=== PATIENT | male | born 1985 | race American Indian/Alaskan Native ===

== ENCOUNTER 2020-12-20 12:34 | Emergency (ER) | payer OTHER ==
--- NOTE | 2020-12-20 14:01 | XRay Report ---
CHEST 1 VIEW INDICATION / CLINICAL INFORMATION: CP. COMPARISON: None available. FINDINGS: SUPPORT DEVICES: None. HEART / MEDIASTINUM: No significant abnormality. LUNGS / PLEURA: No significant pulmonary or pleural abnormality. No pneumothorax. ADDITIONAL FINDINGS: No significant additional findings. IMPRESSION: 1. No acute findings. Signer Name: Angelika Alvarado MD Signed: 12/20/2020 1:57 PM Workstation Name: [id number]
[2020-12-20 14:03] LABS: Basophils % (Auto) 0.3 % (0.0-1.8); Eosinophils % (Auto) 0.1 % (0.0-4.3); Hematocrit 39.3 % (35.5-45.6); Hemoglobin 13.2 gm/dl (11.8-15.2); Lymphocytes % (Auto) 8.2 % (13.4-35.0); Mean Corpuscular HGB Conc 34 % (32-34); Mean Corpuscular Volume 91 fl (84-94); Monocytes # (Auto) 0.8 K/mm3 (0.0-0.8); Monocytes % (Auto) 6.6 % (0.0-7.3); Platelet Count 238 K/mm3 (140-440); Red Blood Count 4.34 M/mm3 (3.65-5.03); Red Cell Distribution Width 13.2 % (13.2-15.2)
[2020-12-20 14:22] LABS: Alanine Aminotransferase 87 units/L (7-56); Albumin 3.9 g/dL (3.9-5); BUN/Creatinine Ratio 11; Blood Urea Nitrogen 16 mg/dL (9-20); Calcium 8.4 mg/dL (8.4-10.2); Hemolysis Index 23
[2020-12-20] MEDS ORDERED: SODIUM CHLORIDE 0.9% 1000 ML 1,000 ML IV ONE (14:31)
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
--- NOTE | 2020-12-20 18:46 | Nuclear Medicine Report ---
NUCLEAR MEDICINE PERFUSION LUNG SCAN INDICATION / CLINICAL INFORMATION: CHEST PAIN,ELEVATED D-DIMER. TECHNIQUE: 4.5 mCi of Tc-99m MAA were given by IV. COMPARISON: Chest radiograph dated today's date. FINDINGS: PERFUSION: No significant perfusion defects. ADDITIONAL FINDINGS: None. IMPRESSION: 1. Low probability for pulmonary embolism. Signer Name: Chace Colin MD Signed: 12/20/2020 6:41 PM Workstation Name: [id number]
[2020-12-20] MEDS ORDERED: KETOROLAC 30 MG/1 ML INJ IV ONE (19:19)
[2020-12-20 20:41] VITALS: BP 124/71
--- NOTE | 2020-12-21 14:02 | Electrocardiograph Report ---
[facility] Test Date: 2020-12-20 Test Time: 14:06:34 Pat Name: MOE RAMOS Department: Room: Gender: M Lead Person: JARON : 1985 Requested By: FLORINA KENNEDY Order Number: [id number] Reading MD: González Rice Measurements Intervals [place] Rate: 95 P: 49 PA: 146 QRS: 56 QRSD: 86 T: 30 QT: 367 QTc: 460 Interpretive Statements Sinus rhythm No previous ECG available for comparison Electronically Signed On 12-21-2020 11:01:48 PDT by González Rice
== END 2020-12-20 19:35 ==
LOC: EEVIPCON 12:34 → ED 12:34
DX: H10.213 Acute toxic conjunctivitis, bilateral (principal); R07.89 Other chest pain; I10 Essential (primary) hypertension; F17.200 Nicotine dependence, unspecified, uncomplicated; Z98.890 Other specified postprocedural states; Z79.899 Other long term (current) drug therapy
CPT/HCPCS: 36415; 71045; 78580; 80053; 82550; 84443; 84484; 85025; 85379; 93005; 96361; 96374; 99285; A9540; J1885; J7030

== ENCOUNTER 2021-03-09 08:10 | Outpatient (CLI) | payer OTHER ==
[2021-03-09 08:44] LABS: Basophils # (Auto) 0.1 K/mm3 (0.0-0.1); Eosinophils # (Auto) 0.2 K/mm3 (0.0-0.4); Eosinophils % (Auto) 2.5 % (0.0-4.3); Hematocrit 41.9 % (35.5-45.6); Hemoglobin 14.9 gm/dl (11.8-15.2); Lymphocytes # (Auto) 3.1 K/mm3 (1.2-5.4); Lymphocytes % (Auto) 42.6 % (13.4-35.0); Mean Corpuscular HGB Conc 36 % (32-34); Mean Corpuscular Volume 90 fl (84-94); Monocytes # (Auto) 0.5 K/mm3 (0.0-0.8); Monocytes % (Auto) 7.1 % (0.0-7.3); Platelet Count 249 K/mm3 (140-440); Red Blood Count 4.64 M/mm3 (3.65-5.03); Red Cell Distribution Width 13.7 % (13.2-15.2)
[2021-03-09 09:20] LABS: INR 1.52 (0.87-1.13)
[2021-03-09 09:35] LABS: ABG Base Excess 2.1 mmol/L (-2.0-3.0); ABG HCO3 28.3 mmol/L (20.0-26.0); ABG Methemoglobin 0.8 % (0.0-1.5); ABG Oxygen Saturation 40.6 % (95.0-99.0); ABG PCO2 50.5 mm Hg; ABG PH 7.367 pH Units (7.350-7.450)
[2021-03-09 09:40] LABS: Alanine Aminotransferase 36 units/L (7-56); Albumin 4.4 g/dL (3.9-5); BUN/Creatinine Ratio 11; Blood Urea Nitrogen 13 mg/dL (9-20); Calcium 9.7 mg/dL (8.4-10.2); Chol/HDL Ratio 2.36 %; HDL Cholesterol 52 mg/dL (40-59); Hemolysis Index 5; LDL Cholesterol,Direct 69 mg/dL (50-130); Partial Thromboplastin Time 60.2 Sec. (24.2-36.6)
[2021-03-09 12:59] LABS: ABG PO2 23.7 mm Hg (80.0-90.0)
[2021-03-09 18:23] LABS: ABG Base Excess -0.1 mmol/L (-2.0-3.0); ABG HCO3 24.7 mmol/L (20.0-26.0); ABG Methemoglobin 0.6 % (0.0-1.5); ABG Oxygen Saturation 97.2 % (95.0-99.0); ABG PH 7.398 pH Units (7.350-7.450); ABG PO2 94.2 mm Hg (80.0-90.0)
== END 2021-03-09 08:11 | disposition home or self-care (01) ==
LOC: PF 08:10
PROVIDERS: ATTEND Internal Medicine
DX: J45.909 Unspecified asthma, uncomplicated (principal); E66.01 Morbid (severe) obesity due to excess calories; F32.9 Major depressive disorder, single episode, unspecified; I10 Essential (primary) hypertension; J32.9 Chronic sinusitis, unspecified; K21.9 Gastro-esophageal reflux disease without esophagitis
CPT/HCPCS: 36415; 71046; 80053; 80061; 82785; 82803; 84436; 84443; 85025; 85610; 85730; 94010; 94727; 94729

== ENCOUNTER 2021-03-09 16:03 | Emergency (ER) | payer OTHER ==
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
[2021-03-09] MEDS ORDERED: KETOROLAC 30 MG/1 ML INJ IM ONE (18:20)
[2021-03-09 18:29] LABS: INR 0.93 (0.87-1.13); Partial Thromboplastin Time 24.9 Sec. (24.2-36.6)
[2021-03-09 19:42] VITALS: BP 126/64
--- NOTE | 2021-03-12 00:47 | Pulmonary Function Test ---
DATE OF VISIT: 03/09/2021 PULMONARY FUNCTION TEST SPIROMETRY: FVC 3.64 liters, which is 70% of predicted. FEV1 is 2.62, which is 61% of predicted. FEV1/FVC ratio is 73. Flow volume loop, FEF 25-75% is 1.98, which is 44% of the predicted. LUNG VOLUMES: The patient's slow vital capacity 3.49, which is 61% of the predicted and DLCO 3.46, which is 54% of the predicted and FRC is 3.31, which is 58% of the predicted. IMPRESSION: The patient has looks like some early obstructive ventilatory impairment as evidenced by decrease in FEF 25-75% ____. TID: [id number] RECEIPT: [id number] DANIELA/MARICRUZ
--- NOTE | 2021-03-26 02:35 | Pulmonary Function Test ---
DATE OF VISIT: 03/09/2021 PULMONARY FUNCTION TEST SPIROMETRY: FVC is 3.6 liters, which is 70% of the predicted. FEV1 is 2.62 liters, which is 61% of predicted and the FEV1/FVC ratio is 73. Flow volume loop 1.98 liters per second, which is 44% of the predicted. MVV is 58% of the predicted. Slow vital capacity 3.49, which is 61% of the predicted. FRC is 3.31, which is 58% of the predicted and DLCO is 90% of the predicted. IMPRESSION: 1. Early obstructive ventilatory impairment as evidenced by decrease in FEF 25-75%. 2. Restrictive ventilatory impairment cannot be ruled out based on this pulmonary function test, the patient needed TLC. TID: [id number] RECEIPT: [id number] DANIELA/KRISTA cc: Alfonso Villa
--- NOTE | 2021-04-10 00:09 | Pulmonary Function Test ---
DATE OF VISIT: 03/09/2021 PULMONARY FUNCTION TEST SPIROMETRY: FVC 3.6 liters, which is 70% of the predicted. FEV1 is 2.62 liters, which is 61% of the predicted. FEV1/FVC ratio is 73 and flow volume loop 1.98 liters, which is 44% of the predicted. The patient's MVV 58% of the predicted. Tidal volume is 1.08 L. LUNG VOLUMES: The patient's slow vital capacity is 3.49, which is 61% of the predicted. Inspiratory capacity is 2.77, which is 72% of the predicted. FRC 3.31 liters, which is 58% of the predicted. DIFFUSING CAPACITY: The patient's DLCO, which is 90% of the predicted. IMPRESSION: Early obstructive ventilatory impairment as evidenced by decrease in FEF 25-75% with reduced DLCO and also reduced slow vital capacity, also reduced FRC, and is a restrictive ventilatory impairment cannot be ruled out. The patient will need a TLC to evaluate for restrictive pulmonary impairment. TID: [id number] RECEIPT: [id number] DANIELA/CAITLIN
== END 2021-03-09 19:47 ==
LOC: ED 16:03
DX: J18.9 Pneumonia, unspecified organism (principal); I10 Essential (primary) hypertension; J45.909 Unspecified asthma, uncomplicated; F17.200 Nicotine dependence, unspecified, uncomplicated; Z98.890 Other specified postprocedural states; Z79.899 Other long term (current) drug therapy; Z91.013 Allergy to seafood
CPT/HCPCS: 36415; 85610; 85730; 94060; 96372; 99283; J1885